=== PATIENT | female | born 1970 | race Caucasian/White ===

== ENCOUNTER 2019-11-16 07:58 | Outpatient (CLI) | payer OTHER, SELFPAY ==
--- NOTE | ~2019-11-16 | MM_ITS ---
EXAMINATION: MM screening [facility] BI w oneal HISTORY: Screening mammogram TECHNIQUE: Craniocaudal and mediolateral oblique 3-D tomosynthesis images were obtained and synthetic 2-D images were generated. CAD analysis was submitted and interpreted. COMPARISON: 10/12/2018, 09/28/2017, 09/13/2016 bilateral digital screening mammogram examinations BREAST PARENCHYMAL COMPOSITION: The breasts are almost entirely fatty. FINDINGS: There is no evidence of suspicious mass, calcification, or architectural distortion to sugg est malignancy in either breast. There has been no suspicious interval change. IMPRESSION: 1. No mammographic evidence of malignancy. 2. Recommend routine screening mammography in one year. BI-RADS Category 1: Negative Reviewed, dictated and finalized at location A.
== END 2019-11-16 07:59 | disposition home or self-care (01) ==
PROVIDERS: PCP Family Medicine; Visit Provider Obstetrics & Gynecology
DX: Z12.31 Encounter for screening mammogram for malignant neoplasm of breast (principal)
CPT/HCPCS: 77063; 77067

== ENCOUNTER → 2020-01-25 09:49 | Outpatient (CLI) | payer OTHER, SELFPAY ==
--- NOTE | ~2020-01-25 | DEXA_ITS ---
Bone Density Report Name: Stefanie Webb Age: 49 Sex: Female Ethnicity: White Date of : 1970 Indication: postmenopausal; screening for osteoporosis; Referring Provider: JOCELYN GAXIOLA Study: Bone densitometry was performed. Exam Date: January 25, 2020 Accession number: [id number] Bone Density: Region BMD T-score Z-score Classification AP Spine (L1-L4) 1.119 0.7 1.5 Normal Femoral Neck (Left) 0.947 0.9 1.7 Normal Total Hip (Left) 1.153 1.7 2.3 Normal Femoral Neck (Right) 0.917 0.6 1.5 Normal Total Hip (Right) 1.082 1.2 1.7 Normal Total Hip Mean 1.118 1.5 2.0 Normal World Health Organization criteria for BMD impression classify patients as: Normal (T-score at or above -1.0), Osteopenia (T-score between -1.0 and -2.5), or Osteoporosis (T-score at or below -2.5). 10-year Fracture Risk: FRAX not reported because: All T-scores for Spine Total, Hip Total, Femoral Neck at or above -1.0 Clinical Information Provided by Patient: Patient maximum height was 66 No regular weight bearing exercise Drinks caffeinated beverages Onset of menses at age 12 Number of children 3 Impression: The patient has normal bone mass. Discussion: BONE DENSITY IS ABOVE THE MINIMUM DESIRABLE LEVEL AT ALL SKELETAL SITES TESTED. This patient?s bone mineral density is above the minimum desirable level (T-score -1.0 or better) at all sites measured. The patient should follow a healthful lifestyle (good nutrition with adequate calcium and vitamin D, and appropriate weight-bearing exercise). Follow-Up: Consider repeating this study in 5 years or sooner if there is some new clinical indication. Reported by: MONROE on 01/25/2020 10:16:00 AM. Reviewed, dictated and finalized at location ALuis THOMPSON
== END ==
DX: M81.0 Age-related osteoporosis without current pathological fracture (principal)
CPT/HCPCS: 77080

== ENCOUNTER 2020-12-10 15:29 | Outpatient (CLI) | payer OTHER, SELFPAY ==
--- NOTE | ~2020-12-10 | MM_ITS ---
EXAMINATION: MM screening [facility] BI w oneal HISTORY: Screening mammogram TECHNIQUE: Craniocaudal and mediolateral oblique 3-D tomosynthesis images were obtained and synthetic 2-D images were generated. CAD analysis was submitted and interpreted. COMPARISON: 11/16/2019, 10/12/2018, 09/28/2017 BREAST PARENCHYMAL COMPOSITION: There are scattered areas of fibroglandular density. FINDINGS: There is no evidence of suspicious mass, calcification, or architectural distortion to sugg est malignancy in either breast. There has been no suspicious interval change. IMPRESSION: 1. No mammographic evidence of malignancy. 2. Recommend routine screening mammography in one year. BI-RADS Category 1: Negative Reviewed, dictated and finalized at location A.
== END 2020-12-10 15:30 | disposition home or self-care (01) ==
LOC: ANHIMG 15:33
PROVIDERS: Visit Provider Obstetrics & Gynecology
DX: Z12.31 Encounter for screening mammogram for malignant neoplasm of breast (principal)
CPT/HCPCS: 77063; 77067

== ENCOUNTER 2022-07-22 07:16 | Outpatient (CLI) | payer OTHER, SELFPAY ==
--- NOTE | ~2022-07-22 | MM_ITS ---
EXAMINATION: MM screening [facility] BI w oneal HISTORY: Screening mammogram TECHNIQUE: Craniocaudal and mediolateral oblique 3-D tomosynthesis images were obtained and synthetic 2-D images were generated. CAD analysis was submitted and interpreted. COMPARISON: 12/10/2020, 11/16/2019, 10/12/2018 BREAST PARENCHYMAL COMPOSITION: There are scattered areas of fibroglandular density. FINDINGS: RIGHT BREAST: A mass is present in the anterior third of the inner breast 5 cm from the nipple. LEFT BREAST: No suspicious mass, calcification, or architectural distortion are identified to suggest malignancy. There has been no suspicious interval change. IMPRESSION: 1. Right breast mass. 2. Additional mammographic views and possible breast ultrasound are recommended. BI-RADS Category 0: Incomplete: Needs additional imaging evaluation. Reviewed, dictated and finalized at location A. [facility] IMPRESSION: 1. Right breast mass. 2. Additional mammographic views and possible breast ultrasound are recommended . BI-RADS Category 0: Incomplete: Needs additional imaging evaluation.
== END 2022-07-22 07:17 | disposition home or self-care (01) ==
PROVIDERS: PCP Obstetrics & Gynecology; Visit Provider Obstetrics & Gynecology
DX: Z12.31 Encounter for screening mammogram for malignant neoplasm of breast (principal); N63.0 Unspecified lump in unspecified breast
CPT/HCPCS: 77063; 77067

== ENCOUNTER 2022-08-13 14:00 | Outpatient (CLI) | payer OTHER, SELFPAY ==
--- NOTE | ~2022-08-13 | MMUS_ITS ---
EXAMINATION: MM diagnostic hany RT w oneal, US breast RT limited HISTORY: Right breast mass reported on 07/22/2022 TECHNIQUE: Additional 3-D tomosynthesis images of the right breast were performed and synthetic 2-D i mages were generated. CAD analysis was submitted and interpreted. High resolution targeted right yang st ultrasound was performed. COMPARISON: 07/22/2022 bilateral screening mammogram FINDINGS: MAMMOGRAPHIC FINDINGS: There is a low density circumscribed round opacity at the approximately 2:00 - 3:00 area of the right breast. This has benign mammographic appearance. ULTRASOUND: 2:00 3 cm from nipple: Circumscribed 4.3 x 4.6 x 5.5 mm sonolucent lesion, consistent with benign sim ple cyst. IMPRESSION: 1. Benign 5.5 mm cyst of right breast at 2:00 3 cm from nipple 2. Routine annual mammographic screening is recommended BI-RADS Category 2: Benign finding(s). Reviewed, dictated and finalized at location A. [employer] IMPRESSION: 1. Benign 5.5 mm cyst of right breast at 2:00 3 cm from nipple 2. Routine annual mammographic screening is recommended BI-RADS Category 2: Benign finding(s).
== END 2022-08-13 14:01 | disposition home or self-care (01) ==
PROVIDERS: PCP Obstetrics & Gynecology; Visit Provider Obstetrics & Gynecology
DX: R92.8 Other abnormal and inconclusive findings on diagnostic imaging of breast (principal)
CPT/HCPCS: 76642; 77061; 77065; G0279

== ENCOUNTER 2023-03-18 05:33 | Day surgery (SDC) | payer OTHER, SELFPAY ==
[2023-03-10 14:20] VITALS: BMI 35.5
[2023-03-11 11:04] VITALS: BMI 40.7
--- NOTE | ~2023-03-18 | XR_ITS ---
EXAMINATION: XR surgery orthopedic DATE: 03/18/2023 09:35 INDICATION: Shortening osteotomy of the second metatarsal TECHNIQUE: Single dorsal plantar fluoroscopic image of the left forefoot was obtained during procedur e performed by Dr. Camilo. Radiologist was not present for the imaging or procedure. The amount of fluoroscopy time used during this procedure was 0.1 minutes. COMPARISON: None. FINDINGS: Shortening osteotomy at the neck of the left second metatarsal which is fixed with a pair of screws. Expected small amount of postoperative gas in the second metatarsophalangeal joint space. Age-indeter minate arthrodesis with fixation device spanning the second proximal interphalangeal joint. No fractu re. Slight crossover of the first and second toes. Alignment is otherwise essentially anatomic. 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 IMPRESSION: 1. Fluoroscopy during orthopedic procedure at the left forefoot. See procedure note for further detai l. Reviewed, dictated and finalized at location A. IMPRESSION: 1. Fluoroscopy during orthopedic procedure at the left forefoot. See procedure note for further detail.
[2023-03-18 06:55] VITALS: BP 149/110; PULSE 66; RESP 18; TEMP 36.8; O2SAT 99
--- NOTE | 2023-03-18 07:06 | P.PNAN_ITS ---
Anes - Initial Pre Proc Eval Procedure: Operation Date: 03/18/23 07:30 Proposed Procedures p Shortening Second Metatarsal Osteotomy Left Foot - Manfred Camilo JR, MD s Hammer Toe Repair Second Digit Left Foot - Manfred Camilo JR, MD s Partial Plantar Fasciectomy Left Foot - Manfred Camilo JR, MD Date/Time: 03/18/23 07:06 Surgeon: Manfred Camilo JR, MD Pre Op Diagnosis: Metatarsalgia LT Foot,Hammer Toe 2nd Digit LT Foot Patient Data Age: 53 Gender: F Height: 1.68 m Weight: 119.1 kg Last Vital Signs Temp 36.8 C 03/18/23 06:55 Pulse 66 03/18/23 06:55 Resp 18 03/18/23 06:55 BP 149/110 H 03/18/23 06:55 Pulse Ox 99 03/18/23 06:55 O2 Del Method Room Air 03/18/23 06:55 Allergies Allergy/AdvReac Type Severity Reaction Status Date / Time oxycodone [From Percocet] Allergy Intermediate Hives Verified 03/18/23 06:28 Home Medications Medication Instructions Recorded Confirmed Type cetirizine 10 mg tablet (Zyrtec) 10 mg PO DAILY 03/11/23 03/18/23 History cholecalciferol (vitamin D3) 50 50 mcg PO DAILY 03/11/23 03/18/23 History mcg (2,000 unit) capsule (Vitamin D3) lisinopril 10 1 tablet PO DAILY 03/11/23 03/18/23 History mg-hydrochlorothiazide 12.5 mg tablet magnesium 250 mg tablet 500 mg PO DAILY 03/11/23 03/18/23 History niacin 250 mg tablet 250 mg PO DAILY 03/11/23 03/18/23 History omega 9-kjv-ukv-fish oil 1,000 mg 2 cap PO DAILY 03/11/23 03/18/23 History (120 mg-180 mg) capsule (Fish Oil) sertraline 50 mg tablet 50 mg PO DAILY 03/11/23 03/18/23 History Patient hx anesthesia problems: none Family hx anesthesia problems: none Results Review: All pre-operative results and documents have been reviewed as part of the pre- operative evaluation. [facility] Family History Family History Mother Hypertension Asthma Social History Social History Smoking status: Never smoker Second hand tobacco smoke exposure: No Alcohol intake: never Substance use: never Substance use type: does not use Living arrangements: with family Spiritual care concerns: No Anes - Eval Final PreProcedure Day of Procedure 03/18/23 07:06 Patient weight: morbidly obese Heart: regular rate and rhythm Lungs: clear to auscultation Airway: Mallampati scale class II Neurological: alert and oriented Last oral intake: >/= 8 hours ASA classification: III Emergent: no Anesthetic plan: proceed Anesthesia type and monitoring: general LMA and standard monitoring Results Review: All pre-operative results and documents have been reviewed as part of the pre- operative evaluation. Informed Consent: The patient's anesthetic plan and its attendant risks and benefits were discussed with the patient/family/POA. Questions were solicited and answers provided to the satisfaction of the patient/family/POA.
[2023-03-18] MEDS: LACTATED RINGERS 1,000 ML 30 ML IV CONT (07:10)
--- NOTE | 2023-03-18 08:25 | WPDHPUPDATE1 ---
History and Physical Update Update Date/Time: 03/18/23 08:25 History and Physical has been reviewed, including an updated exam of the patient. There are NO changes in the patient's condition. Risks, benefits, and alternatives have been discussed and questions answered. Patient agrees to proceed with procedure.
[2023-03-18] MEDS: ceFAZolin SODIUM 2 GM/20 ML SW SYRINGE IV PUSH (08:31)
[2023-03-18] MEDS: LIDOCAINE HCL 2% LOCAL INJ 20 ML VIAL INFILTRATE (08:37)
--- NOTE | 2023-03-18 08:46 | WPDANESPN ---
Anes - Prog Note Post-Op Date/Time: 03/18/23 08:46 Cardiovascular status: normal Respiratory status: normal Airway patency: baseline Mental status: baseline Post-Op hydration status: normal Vital Signs: Last Vital Signs Temp 36.8 C 03/18/23 06:55 Pulse 66 03/18/23 06:55 Resp 18 03/18/23 06:55 BP 149/110 H 03/18/23 06:55 Pulse Ox 99 03/18/23 06:55 O2 Del Method Room Air 03/18/23 06:55 Pain Score (VAS): 0 Patient Feedback: Patient satisfied with anesthetic care.
[2023-03-18 09:51] VITALS: BP 170/98; PULSE 76; RESP 16; O2SAT 96
--- NOTE | 2023-03-18 09:56 | W.PM.PROC2 ---
Procedure Note - Detailed Date of Procedure 03/18/23 Pre-op Diagnosis 1. Metatarsalgia left with Freibergs disease 2. Hammer toe 2nd digit left foot 3. Plantar fasciitis left foot Post-op Diagnosis Same Procedure Performed 1. Bell shortening second metatarsal osteotomy left foot 2. Hammertoe repair 2nd digit left foot 3. Partial plantar fasciectomy left foot Surgeon Manfred Camilo JR, HERACLIO Anesthesia MAC and Local Indications 1. Painful left forefoot with Freibergs of the second metatarsal head due to a long second metatarsal 2. Painful hammertoe deformity second digit left foot 3. Recalcitrant left inferior heel pain Description of Procedure PROCEDURE IN DETAIL: Under mild sedation, the patient was brought into the operating room, placed on the operating table in supine position. A pneumatic ankle tourniquet was placed about the patient's ipsilateral ankle. Following IV sedation a local anesthetic block was obtained about the left foot and ankle utilizing 20 cc of 2% Lidocaine plain and 0.5% Marcaine plain. The foot was then scrubbed, prepped, and draped in the usual aseptic manner. An Esmarch bandage was then used to exsanguinate the patient's foot and the pneumatic ankle tourniquet was then inflated. Surgery began in the following manner: Attention was directed to the second digit of the left foot where a 5 cm incision was made from the distal interphalangeal joint extending to the 2nd metatarsal shaft. A transverse tenotomy was created dorsal to the proximal interphalangeal joint, next the head of the proximal phalanx was resected with an oscillating saw blade, the [employer] hammertoe planer was used to denude and prepare the joint for the hammertoe implant from the base of the middle phalanx and distal proximal phalanx. Next, I implanted the [employer] Phalinx size small flexed hammertoe implant using standard technique. Fluoroscopy was used to make sure that the digit and implant were appropriately positioned. The dissection was continued to the dorsal aspect of the 2nd metatarsal head of the left foot where a 2 cm incision was made just medial to the extensor tendon to the 2nd digit. The incision was continued deep down through the subcutaneous tissues using sharp and blunt dissection. All bleeders were cauterized as necessary. A full-length periosteal incision was made overlying the 2nd metatarsal head distally. Next, a sagittal bone saw was used to make an osteotomy starting along the dorsal aspect of the articular surface to the head of the 2nd metatarsal in a parallel fashion to the shaft of the 2nd metatarsal. After this osteotomy was completed, the head of the 2nd metatarsal was noted to float into a more corrected proximal position. Two Jennifer cannulated 2.0mm screws were driven from dorsal to plantar across the osteotomy site with excellent compression noted. Slight elevation of the digit was noted so I performed an extensor tenotomy proximal to the metatarsal phalangeal joint. This improved the elavatus of the digit. The wound site was then flushed with copious amounts of sterile saline. Next, the periosteum and capsular structures overlying 2nd digit and 2nd metatarsophalangeal joint were reapproximated with 3-0 Vicryl. Next, subcutaneous structures were reapproximated and coapted utilizing 4-0 Vicryl. I reapproximated the extensor tendon overlying the 2nd digit proximal interphalangeal joint with 4-0 Vicryl. Next, the skin was reapproximated and coapted utilizing 4-0 Monocryl in running subcuticular suture fashion technique. The small incision to the base of the first metatarsal base was reapproximated with 4-0 Prolene in simple interrupted suture technique. Next, an incision was made starting distal to the medial tubercle of the calcaneus extending distally 3cm. All bleeders were cauterized as necessary. Next the dissection was continued down to the plantar fascia it was exposed medially and laterally
[2023-03-18 10:15] VITALS: BP 167/95; PULSE 56; RESP 16; O2SAT 98
== END 2023-03-18 10:40 | disposition home or self-care (01) ==
PROVIDERS: PCP Family Medicine; Visit Provider Podiatrist Foot & Ankle Surgery
PROC: (CPT 28299; principal; 2023-03-18 07:30)
PROC: (CPT 28308; 2023-03-18 07:30)
PROC: (CPT 28119; 2023-03-18 07:30)
DX: M77.42 Metatarsalgia, left foot (principal); M93.872 Other specified osteochondropathies, left ankle and foot; M20.42 Other hammer toe(s) (acquired), left foot; M72.2 Plantar fascial fibromatosis
CPT/HCPCS: 28308; 28285; 28060; L8699; 99199

== ENCOUNTER 2023-12-02 12:06 | Outpatient (CLI) | payer OTHER, SELFPAY ==
--- NOTE | ~2023-12-02 | MM_ITS ---
EXAMINATION: MM screening hany BI w oneal HISTORY: Screening TECHNIQUE: Craniocaudal and mediolateral oblique 3-D tomosynthesis images were obtained and synthetic 2-D images were generated. CAD analysis was submitted and interpreted. COMPARISON: No prior mammogram is available for comparison at this institution. BREAST PARENCHYMAL COMPOSITION: There are scattered areas of fibroglandular density. FINDINGS: There is no evidence of suspicious mass, calcification, or architectural distortion to sugg est malignancy in either breast. There has been no suspicious interval change. IMPRESSION: 1. No mammographic evidence of malignancy. 2. Recommend routine screening mammography in one year. BI-RADS Category 1: Negative Reviewed, dictated and finalized at location B.
== END 2023-12-02 12:07 | disposition home or self-care (01) ==
LOC: CHSIMG 12:08
PROVIDERS: PCP Family Medicine; Visit Provider Obstetrics & Gynecology
DX: Z12.31 Encounter for screening mammogram for malignant neoplasm of breast (principal)
CPT/HCPCS: 77063; 77067